=== PATIENT | male | born 1975 | race Two or more races ===

== ENCOUNTER 2018-10-09 05:31 | Emergency (ER) | payer OTHER ==
[~2018-10-09] VITALS: Ht 172.7 cm; Wt 90.4 kg
[2018-10-09 06:07] VITALS: BP 153/75
[2018-10-09] MEDS ORDERED: IBUPROFEN 600 MG TABLET. PO ONE (06:15)
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
--- NOTE | 2018-10-09 06:33 | EKG ---
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
== END 2018-10-09 08:20 | disposition home or self-care (01) ==
LOC: ER 05:31
DX: S16.1XXA Strain of muscle, fascia and tendon at neck level, initial encounter (principal); S20.219A Contusion of unspecified front wall of thorax, initial encounter; V49.9XXA Car occupant (driver) (passenger) injured in unspecified traffic accident, initial encounter; Y93.89 Activity, other specified; Y92.410 Unspecified street and highway as the place of occurrence of the external cause; Y99.8 Other external cause status
CPT/HCPCS: 71046; 71120; 72125; 93005; 99284